=== PATIENT | female | born 1955 | race Caucasian/White ===

== ENCOUNTER 2016-10-20 22:14 | Outpatient (CLI) | payer MEDICAID, MEDICARE | END 2016-10-20 22:15 | disposition home or self-care (01) | LOC: LAB.R 22:14 | PROVIDERS: ATTEND Physician Assistant Medical | DX: N76.0 Acute vaginitis (principal) | CPT/HCPCS: 87491; 87591 ==

== ENCOUNTER 2017-03-03 13:45 | Outpatient (CLI) | payer MEDICARE | END 2017-03-03 13:46 | disposition home or self-care (01) | LOC: SC 13:45 | PROVIDERS: ATTEND Nurse Practitioner Family | DX: G47.33 Obstructive sleep apnea (adult) (pediatric) (principal) | CPT/HCPCS: 99214; G0463; 99212 ==

== ENCOUNTER 2017-09-02 08:00 | Outpatient (CLI) | payer MEDICARE | END 2017-09-02 08:01 | disposition home or self-care (01) | LOC: LAB.R 08:00 | PROVIDERS: ATTEND Family Medicine | DX: R19.7 Diarrhea, unspecified (principal) | CPT/HCPCS: 82270; 83630; 87045; 87046; 87177; 87209; 87493 ==

== ENCOUNTER 2018-01-19 14:34 | Outpatient (CLI) | payer MEDICARE ==
--- NOTE | 2018-01-20 13:59 | Mammography Report ---
Reason: SCREENING MAMMO Procedure Date: 01/19/2018 Accession Number: [id number] / [id number] Procedure: MGN - Screening Mammo Dig Bilat CPT Code: FULL RESULT: EXAM: Screening Mammo Dig Bilat DATE: 01/19/2018 2:56 PM CLINICAL HISTORY: 62-year-old female with history of early menses and family history of breast cancer in a cousin at age 40. TECHNIQUE: Bilateral CC and MLO views were obtained. COMPARISON: 03/14/2016, 02/23/2014, 08/06/2012, 07/15/2011. FINDINGS: The breasts demonstrate scattered fibroglandular densities bilaterally. No suspicious masses, clustered microcalcifications, or regions of architectural distortion are identified. IMPRESSION: Negative examination RECOMMENDATION: Routine annual screening unless otherwise clinically indicated. BIRADS CATEGORY 1: Negative STANDARD QUALIFYING STATEMENTS: 1. This examination was not reviewed with the aid of Computer-Aided Detection (CAD). 2. A negative or benign imaging report should not delay biopsy if clinically suspicious findings are present. Consider surgical consultation if warrented. More than 5% of cancers are not identified by imaging. 3. Dense breasts may obscure an underlying neoplasm. 4. This examination was reviewed without the aid of 3D breast imaging (tomosynthesis).
== END 2018-01-19 14:35 | disposition home or self-care (01) ==
LOC: DI.N 14:34
DX: Z12.31 Encounter for screening mammogram for malignant neoplasm of breast (principal); Z80.3 Family history of malignant neoplasm of breast
CPT/HCPCS: 77067

== ENCOUNTER 2018-05-17 14:51 | Outpatient (CLI) | payer MEDICARE | END 2018-05-17 14:52 | disposition home or self-care (01) | LOC: SC 14:51 | PROVIDERS: ATTEND Nurse Practitioner Family | DX: G47.33 Obstructive sleep apnea (adult) (pediatric) (principal) | CPT/HCPCS: 99214; G0463; 99212 ==

== ENCOUNTER 2019-02-07 09:00 | Outpatient (CLI) | payer MEDICARE ==
--- NOTE | 2019-02-07 14:20 | XRAY Report ---
Reason: RIGHT SHOULDER PAIN Procedure Date: 02/07/2019 Accession Number: [id number] / [id number] Procedure: [facility]CP - Shoulder 2 View RT CPT Code: FULL RESULT: EXAM: RIGHT SHOULDER RADIOGRAPHY EXAM DATE: 02/07/2019 09:40 AM. CLINICAL HISTORY: RIGHT SHOULDER PAIN. COMPARISON: None. TECHNIQUE: 2 views. FINDINGS: Bones: Linear lucency within the glenoid may represent a vascular channel.. No definite fracture or bone lesion. Joints: The glenohumeral and acromioclavicular joints are anatomically aligned. Soft tissues: The included hemithorax is unremarkable. No soft tissue calcification. IMPRESSION: No definite acute findings right shoulder radiography; if symptoms persist consider MRI.. [facility]
== END 2019-02-07 09:01 | disposition home or self-care (01) ==
LOC: DI.WCP 09:00
PROVIDERS: ATTEND Family Medicine
DX: M25.511 Pain in right shoulder (principal)

== ENCOUNTER 2020-03-26 08:00 | Outpatient (CLI) | payer MEDICARE | END 2020-03-27 23:59 | disposition home or self-care (01) | LOC: LAB.R 08:00 | PROVIDERS: ATTEND Family Medicine | DX: R19.7 Diarrhea, unspecified (principal) | CPT/HCPCS: 81599; 82274; 83993; 87045; 87046; 87177; 87209; 87324; 87329; 87427; 87449 ==

== ENCOUNTER 2020-03-26 12:40 | Outpatient (CLI) | payer MEDICARE | END 2020-03-26 23:59 | disposition home or self-care (01) | LOC: LAB.N 12:40 | PROVIDERS: ATTEND Family Medicine | DX: R19.7 Diarrhea, unspecified (principal); Z20.828 Contact with and (suspected) exposure to other viral communicable diseases | CPT/HCPCS: 87275; 87276; U0004 ==

== ENCOUNTER 2020-04-06 07:00 | Outpatient (CLI) | payer MEDICARE ==
[2020-04-06 12:19] LABS: H. PYLORIS ANTIGEN STL NEGATIVE (Negative)
== END 2020-04-06 23:59 | disposition home or self-care (01) ==
LOC: LAB 07:00
PROVIDERS: ATTEND Family Medicine
DX: R19.7 Diarrhea, unspecified (principal)
CPT/HCPCS: 87338

== ENCOUNTER 2020-05-15 07:10 | Day surgery (SDC) | payer MEDICARE ==
[~2020-05-15 07:10] MED LIST: SODIUM/POTASSIUM/MAG SULFATES 354 ML PREP KIT PO SCH
[2020-05-15] MEDS ORDERED: LACTATED RINGERS 1,000 ML IV ONE (07:51)
[2020-05-15] MEDS ORDERED: MIDAZOLAM 2 MG/2 ML VIAL ONE ×2 (13:29→14:09)
[2020-05-15] MEDS ORDERED: fentaNYL 250 MCG/5 ML VIAL ONE (13:30)
[2020-05-15 14:54] VITALS: BP 124/75
== END 2020-05-15 07:11 | disposition home or self-care (01) ==
LOC: SDS 07:10
PROVIDERS: ATTEND Surgery
PROC: 0DBN8ZX Excision of Sigmoid Colon, Via Natural or Artificial Opening Endoscopic, Diagnostic (ICD-10-PCS; 2020-05-15)
PROC: 0DBP8ZX Excision of Rectum, Via Natural or Artificial Opening Endoscopic, Diagnostic (ICD-10-PCS; principal; 2020-05-15 08:15)
DX: R19.5 Other fecal abnormalities (principal); K62.5 Hemorrhage of anus and rectum; K57.91 Diverticulosis of intestine, part unspecified, without perforation or abscess with bleeding; K62.89 Other specified diseases of anus and rectum; K64.8 Other hemorrhoids; K56.600 Partial intestinal obstruction, unspecified as to cause; K75.4 Autoimmune hepatitis; G47.30 Sleep apnea, unspecified; I10 Essential (primary) hypertension; E11.9 Type 2 diabetes mellitus without complications; Z87.891 Personal history of nicotine dependence
CPT/HCPCS: 45380; A9270; J3010; J7120

== ENCOUNTER 2020-10-17 14:24 | Outpatient (CLI) | payer MEDICARE ==
--- NOTE | 2020-10-17 16:39 | DEXA Report ---
PROCEDURE: Dexa Spine and/or Hip INDICATIONS: OSTEOPENIA TECHNIQUE: Dual energy x-ray absorptiometry (DXA) was performed on a [employer] in Place System. Regions measur ed are the AP Spine, femoral neck, and if needed forearm. COMPARISON: DEXA 03/14/2016 FINDINGS: Lumbar Spine: Bone Mineral Density 1.074 g/cm/cm,T score -0.9, compared to -1.4 Left Hip: Bone Mineral Density 0.907 g/cm/cm,T score -0.8, compared to -0.9 Left Femoral Neck: Bone Mineral Density 0.867 g/cm/cm, T score -1.2, compared to -1.5 (T score greater or equal to -1.0: NORMAL) (T score from -1.1 to -2.4: OSTEOPENIA) (T score less than or equal to -2.5 to: OSTEOPOROSIS) Impression: Minimal osteopenia within the left femoral neck, improved compared to prior exam. In janet tion, bone mineral density of the lumbar spine has also improved. Patients with diagnosis of osteoporosis or osteopenia should have regular bone mineral density assess ment. For those eligible for Medicare, routine testing is allowed once every 2 years. Testing frequ ency can be increased for patients who have rapidly progressing disease or for those who are receivin g medical therapy to restore bone mass. Reviewed by: Jessi Dumont MD on 10/17/2020 4:38 PM PDT Approved by: Jessi Dumont MD on 10/17/2020 4:38 PM PDT Station ID: [id number]
== END 2020-10-17 14:25 | disposition home or self-care (01) ==
LOC: DI 14:24
PROVIDERS: ATTEND Family Medicine
DX: M85.89 Other specified disorders of bone density and structure, multiple sites (principal)

== ENCOUNTER 2020-10-17 14:27 | Outpatient (CLI) | payer MEDICARE ==
--- NOTE | 2020-10-24 09:01 | XRAY Report ---
PROCEDURE: Lumbar Spine Complete INDICATIONS: CHRONIC LOW BACK PAIN TECHNIQUE: 4 views of the lumbar spine were acquired. COMPARISON: None. FINDINGS: Bones: 5 [id number] vertebrae are present. There is leftward scoliotic curvature of the lumbar spine with apex at L3. There is moderate disc space narrowing at L4-5, L5-S1. Minimal to mild forami nal narrowing is noted L4-5 and L5-S1. No bridging anterior osteophytes. No vertebral body compressio n fractures. No suspicious bony lesions. Soft tissues: Overlying bowel gas pattern is normal. No suspicious soft tissue calcifications. IMPRESSION: Degenerative changes most notable at L4-5 and L5-S1 as above. As clinically indicated fo r further evaluation of foraminal narrowing, MRI lumbar spine may be obtained. Reviewed by: Jessi Dumont MD on 10/17/2020 4:39 PM PDT Approved by: Jessi Dumont MD on 10/17/2020 4:39 PM PDT Station ID: [id number]
== END 2020-10-17 14:28 | disposition home or self-care (01) ==
LOC: DI 14:27
PROVIDERS: ATTEND Family Medicine
DX: M54.5 Low back pain (principal); G89.29 Other chronic pain; M51.37 Other intervertebral disc degeneration, lumbosacral region; M85.88 Other specified disorders of bone density and structure, other site

== ENCOUNTER 2020-11-02 13:43 | Outpatient (CLI) | payer MEDICARE ==
--- NOTE | 2020-11-02 15:35 | XRAY Report ---
PROCEDURE: Hip w/Pelvis 2-3V RT INDICATIONS: PIRIFORMIS SYNDROME TECHNIQUE: AP pelvis with lateral view(s) of the bilateral hip(s). COMPARISON: None. FINDINGS: Bones: No fractures or dislocations. Pelvic ring appears intact. No suspicious bony lesions. Mild , symmetric hip joint degeneration bilaterally. Soft tissues: The visualized bowel gas pattern is normal. No suspicious soft tissue calcifications. Surgical clips in the right lower quadrant are probably related to appendectomy. IMPRESSION: 1. No acute osseous abnormalities. 2. 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 Reviewed by: Sharif Nuñez MD on 11/02/2020 3:34 PM PDT Approved by: Sharif Nuñez MD on 11/02/2020 3:34 PM PDT Station ID: [id number]
== END 2020-11-02 13:44 | disposition home or self-care (01) ==
LOC: DI.N 13:43
PROVIDERS: ATTEND Family Medicine
DX: M16.0 Bilateral primary osteoarthritis of hip (principal); R30.0 Dysuria
CPT/HCPCS: 81001; 87086; 87181

== ENCOUNTER 2020-11-02 19:14 | Outpatient (CLI) | payer MEDICARE ==
[2020-11-02 21:10] LABS: BILIRUBIN,URINE NEGATIVE (NEGATIVE); GLUCOSE, URINE (UA) NEGATIVE (NEGATIVE); KETONES,URINE (UA) NEGATIVE (NEGATIVE); LEUKOCYTE ESTERASE, URINE SMALL (NEGATIVE); NITRITE,URINE NEGATIVE (NEGATIVE); OCCULT BLOOD,URINE MODERATE (NEGATIVE); PROTEIN,URINE TRACE mg/dL (NEGATIVE); UROBILINOGEN,URINE 0.2 (NORMAL) E.U./dL (NORMAL)
[2020-11-02 21:12] LABS: CLARITY,URINE SL. CLOUDY (CLEAR)
[2020-11-02 21:14] LABS: BACTERIA,URINE Few /HPF (None Seen); RBC,URINE TNTC /HPF (0-5); SQUAMOUS EPITHELIAL CELL,UR FEW Squamous (<= Few); WBC,URINE >25 /HPF (0-5)
== END 2020-11-02 23:59 | disposition home or self-care (01) ==
LOC: LAB.N 19:14
PROVIDERS: ATTEND Emergency Medicine
DX: R30.0 Dysuria (principal)
CPT/HCPCS: 81001; 87086; 87181